=== PATIENT | female | born 1960 | race Caucasian/White ===

== ENCOUNTER 2018-04-06 12:47 | Outpatient (REF) | payer MEDICAID, SELFPAY ==
[2018-04-06 19:58] LABS: Cholesterol 264 mg/dL (50-200); HDL Cholesterol 78 mg/dL (40-60); LDL CHOLESTEROL 165 mg/dL (<100); Triglyceride 78 mg/dL (30-150)
== END 2018-04-06 13:07 ==
LOC: NCHCN 12:47
PROVIDERS: PCP Physician Assistant; Visit Provider Internal Medicine
DX: J44.9 Chronic obstructive pulmonary disease, unspecified (principal); G89.29 Other chronic pain; Z90.09 Acquired absence of other part of head and neck
CPT/HCPCS: 80061; 83721; 84443

== ENCOUNTER 2018-10-21 10:35 | Outpatient (REF) | payer MEDICAID, SELFPAY ==
[2018-10-21 19:40] LABS: Bilirubin Negative (Negative); Blood Negative (Negative); Clarity Clear; Glucose Negative (Negative); Ketones Negative (Negative); Leukocyte Esterase Negative (Negative); Nitrite Negative (Negative); Specific Gravity 1.015 (1.005-1.025); Urobilinogen 0.2 EU/dL (Up TO 0.2); pH 5.5 (5-8)
[2018-10-21 19:54] LABS: Amylase 54 U/L (25-115); Anion Gap 10.6 mmol/L (3-11); BUN 15 mg/dL (7-18); CO2 27.4 mmol/L (21.0-32.0); CREATININE 0.73 mg/dL (0.55-1.02); Chloride 101 mmol/L (98-107); Glucose 97 mg/dL (70-100); Lipase 94 U/L (73-393); Sodium 139 mmol/L (136-145)
[2018-10-21 20:01] LABS: Calcium 9.1 mg/dL (8.5-10.1)
== END 2018-10-21 10:55 ==
LOC: NCHCN 10:35
PROVIDERS: PCP Physician Assistant; Visit Provider Nurse Practitioner Family
DX: R10.84 Generalized abdominal pain (principal)
CPT/HCPCS: 80048; 83690; 81003; 82150

== ENCOUNTER 2019-05-11 11:35 | Outpatient (REF) | payer MEDICAID, SELFPAY | END 2019-05-11 11:55 | LOC: NCHCN 11:35 | PROVIDERS: PCP Physician Assistant; Visit Provider Nurse Practitioner Family | DX: N89.8 Other specified noninflammatory disorders of vagina (principal); N39.0 Urinary tract infection, site not specified | CPT/HCPCS: 87086; 87480; 87510; 87660 ==

== ENCOUNTER 2019-12-23 12:05 | Outpatient (REF) | payer MEDICAID, SELFPAY ==
[2019-12-23 19:49] LABS: HCT 44.4 % (36.0-46.0); HGB 15.3 g/dL (12.0-15.5); Mean Corp. HGB Concentration 34.5 g/dL (32.0-36.0); Mean Corpuscular Hemoglobin 33.7 pg (27.0-33.0); Mean Corpuscular Volume 97.8 fL (80-95); Mean Platelet Volume 9.8 fL (8.0-11.0); Platelet Count 311 x1000/uL (130-400); RBC 4.54 m/cumm (4.00-5.20); RBC Distribution Width 13.2 % (11.7-14.6); White Blood Cell Count 11.23 k/cumm (4.4-10.8)
[2019-12-23 20:00] LABS: Albumin 4.2 g/dL (3.4-5.0); Anion Gap 11.4 mmol/L (3-11); BUN 16 mg/dL (7-18); CO2 26.6 mmol/L (21.0-32.0); CREATININE 0.89 mg/dL (0.55-1.02); Calcium 9.1 mg/dL (8.5-10.1); Chloride 101 mmol/L (98-107); Glucose 81 mg/dL (74-106); Potassium 4.2 mmol/L (3.5-5.1); Sodium 139 mmol/L (136-145)
[2019-12-23 20:04] LABS: Iron 96 ug/dL (50-170); Total Iron Binding Capacity 394 ug/dL (250-450); Transferrin Sat 24 % (15-50)
== END 2019-12-23 12:25 ==
LOC: NCHCN 12:05
PROVIDERS: PCP Physician Assistant; Visit Provider Internal Medicine
DX: K91.2 Postsurgical malabsorption, not elsewhere classified (principal); F32.9 Major depressive disorder, single episode, unspecified; K43.2 Incisional hernia without obstruction or gangrene; J44.9 Chronic obstructive pulmonary disease, unspecified
CPT/HCPCS: 80048; 85027; 82040; 83540; 83550

== ENCOUNTER 2020-04-13 13:00 | Outpatient (RCR) | payer MEDICAID, SELFPAY ==
[2020-04-13] MEDS: Normal Saline Flush 10 ML SYR IVP (13:29)
== END 2020-05-06 23:59 | disposition home or self-care (01) ==
LOC: INF 13:00
PROVIDERS: PCP Physician Assistant; Visit Provider Internal Medicine
DX: K43.2 Incisional hernia without obstruction or gangrene (principal); Z45.2 Encounter for adjustment and management of vascular access device
CPT/HCPCS: 36573; 96365; J1335

== ENCOUNTER 2020-09-20 10:06 | Outpatient (REF) | payer MEDICAID, SELFPAY ==
[2020-09-22 14:57] LABS: COVID-19 RT-PCR UVMMC Result Negative (Negative)
== END 2020-09-20 10:07 | disposition home or self-care (01) ==
LOC: NCHCN 10:06
PROVIDERS: PCP Physician Assistant; Visit Provider Internal Medicine
DX: Z20.822 Contact with and (suspected) exposure to COVID-19 (principal)
CPT/HCPCS: U0003

== ENCOUNTER 2021-03-23 14:18 | Outpatient (REF) | payer MEDICAID, SELFPAY ==
[2021-03-23 19:15] LABS: ALT 28 U/L (14-59); AST 14 U/L (15-37); Alkaline Phosphatase 108 U/L (46-116); Anion Gap 11.8 mmol/L (3-11); BUN 19 mg/dL (7-18); Bilirubin, Total 0.3 mg/dL (0.2-1.0); CO2 23.2 mmol/L (21.0-32.0); CREATININE 0.7 mg/dL (0.55-1.02); Chloride 106 mmol/L (98-107); Glucose 94 mg/dL (74-106); Potassium 3.9 mmol/L (3.5-5.1); Sodium 141 mmol/L (136-145); Total Protein 7.1 g/dL (6.4-8.2)
== END 2021-03-23 14:19 | disposition home or self-care (01) ==
LOC: NCHCN 14:18
PROVIDERS: PCP Physician Assistant; Visit Provider Internal Medicine
DX: K21.9 Gastro-esophageal reflux disease without esophagitis (principal); F17.210 Nicotine dependence, cigarettes, uncomplicated; G89.29 Other chronic pain
CPT/HCPCS: 80053

== ENCOUNTER 2022-05-02 15:33 | Outpatient (REF) | payer OTHER, MEDICAID, SELFPAY ==
[2022-05-02 19:48] LABS: Anion Gap 9.8 mmol/L (3-11); BUN 13 mg/dL (7-18); CO2 24.2 mmol/L (21.0-32.0); CREATININE 0.8 mg/dL (0.55-1.02); Calcium 8.9 mg/dL (8.5-10.1); Calculated LDL 145 mg/dL (<100); Chloride 101 mmol/L (98-107); Cholesterol 228 mg/dL (<200); Estimated GFR 83.78 (mL/min/1.73m2); Glucose 85 mg/dL (74-106); HDL Cholesterol 62 mg/dL (40-60); Potassium 4.1 mmol/L (3.5-5.1); Sodium 135 mmol/L (136-145); TSH 2.85 uIU/mL (0.36-3.74); Triglyceride 106 mg/dL (<150)
== END 2022-05-02 15:34 | disposition home or self-care (01) ==
LOC: NCHCN 15:33
PROVIDERS: PCP Internal Medicine; Visit Provider Internal Medicine
DX: J44.9 Chronic obstructive pulmonary disease, unspecified; E66.3 Overweight; Z90.89 Acquired absence of other organs; E07.89 Other specified disorders of thyroid; Z00.00 Encounter for general adult medical examination without abnormal findings
CPT/HCPCS: 80048; 80061; 84443

== ENCOUNTER 2023-10-03 11:53 | Outpatient (REF) | payer OTHER, MEDICAID, SELFPAY ==
[2023-10-03 19:35] LABS: HCT 43.5 % (36.0-46.0); HGB 15.2 g/dL (11.2-15.7); MCH 32.6 pg (27.0-33.0); MCHC 34.9 % (32.0-36.0); MCV 93 fL (80-95); MPV 8.8 fL (8.0-11.0); Platelet Count 331 10^3/uL (130-400); RBC 4.66 10^6/uL (3.93-5.22); RDW 14.1 % (11.7-14.6); RDW-SD 47.8 fL
[2023-10-03 19:58] LABS: ALT 33 U/L (14-59); Anion Gap 12.3 mmol/L (3-11); BUN 11 mg/dL (7-18); CO2 22.7 mmol/L (21.0-32.0); CREATININE 0.7 mg/dL (0.55-1.02); Calcium 8.7 mg/dL (8.5-10.1); Calculated LDL 80 mg/dL (<100); Chloride 102 mmol/L (98-107); Cholesterol 168 mg/dL (<200); Estimated GFR 97.72 (mL/min/1.73m2); Glucose 95 mg/dL (74-106); HDL Cholesterol 67 mg/dL (40-60); Potassium 3.9 mmol/L (3.5-5.1); Sodium 137 mmol/L (136-145); Triglyceride 106 mg/dL (<150)
[2023-10-03 20:17] LABS: Creatine Kinase 163 U/L (26-192)
[2023-10-06 10:47] LABS: Hepatitis C Ab w Rflx HCV PCR Negative (Negative)
[2023-10-06 10:58] LABS: HIV-1/2 Ag & Ab Screen Negative (Negative)
== END 2023-10-03 11:54 | disposition home or self-care (01) ==
LOC: NCHCN 11:53
PROVIDERS: PCP Internal Medicine; Visit Provider Internal Medicine
DX: R53.83 Other fatigue (principal); Z13.220 Encounter for screening for lipoid disorders; Z11.59 Encounter for screening for other viral diseases; Z11.4 Encounter for screening for human immunodeficiency virus [HIV]
CPT/HCPCS: 80048; 80061; 82550; 85027; 86803; 87389; 84443; 84460